=== PATIENT | male | born 1970 | race Caucasian/White ===

== ENCOUNTER 2021-08-19 11:08 | Emergency (ER) | payer MEDICAID ==
--- NOTE | 2021-08-19 12:10 | EDM.PDOC ---
ED HPI GENERAL MEDICAL PROBLEM - General Chief Complaint: Respiratory Problem Stated Complaint: COVID SYMPTOM Time Seen by Provider: 08/19/21 11:55 Source of Information: Reports: Patient, RN History Limitations: Reports: No Limitations - History of Present Illness INITIAL COMMENTS - FREE TEXT/NARRATIVE: 51 yo non-vaccinated male nonsmoker presents 5 days into a case of Covid-19 for cough and some chest tightness. He called the clinic and was told to go to the ER. He had a transient low grade fever that has resolved. Has mild SMITH. Cough is nonproductive. His is further into her course of Covid. Onset: Gradual Onset Date: 08/15/21 Duration: Day(s):, Getting Worse Location: Reports: Chest Quality: Reports: Other (mild tightness) Severity: Mild Improves with: Reports: Rest Worsens with: Reports: Movement (exertion) Context: Reports: Other (See HPI) Associated Symptoms: Reports: Cough, Fever/Chills (now gone), Shortness of Breath. Denies: Nausea/Vomiting, Rash Treatments [employer]: Reports: Other (see below) (none) Chest Pain Score (Numeric/FACES): 6 - Related Data Allergies Allergy/AdvReac Type Severity Reaction Status Date / Time No Known Allergies Allergy Verified 08/19/21 11:43 Home Meds: Home Meds NK [No Known Home Meds] 08/19/21 [History] Past Medical History - Past Health History Medical/Surgical History: Denies Medical/Surgical History - Infectious Disease History Infectious Disease History: Reports: Chicken Pox Social & Family History - Tobacco Use Tobacco Use Status *Q: Never Tobacco User - Caffeine Use Caffeine Use: Reports: Coffee, Tea - Recreational Drug Use Recreational Drug Use: No ED ROS GENERAL - Review of Systems Review Of Systems: See Below Constitutional: Reports: Malaise. Denies: Fever, Chills HEENT: Reports: Throat Pain Respiratory: Reports: Shortness of Breath, Cough. Denies: Wheezing, Pleuritic Chest Pain, Sputum, Hemoptysis Cardiovascular: Reports: No Symptoms GI/Abdominal: Reports: No Symptoms : Reports: No Symptoms Musculoskeletal: Reports: No Symptoms Skin: Reports: No Symptoms Neurological: Reports: No Symptoms ED EXAM, GENERAL - Physical Exam Exam: See Below Exam Limited By: No Limitations General Appearance: Alert, WD/WN, No Apparent Distress Eye Exam: Bilateral Eye: Normal Inspection Ears: Normal External Exam, Normal Canal, Hearing Grossly Normal, Normal TMs Ear Exam: Bilateral Ear: Auricle Normal, Canal Normal, TM normal Nose: Normal Inspection, No Blood Throat/Mouth: Normal Lips, Normal Voice, No Airway Compromise, Other (small vesicles on R soft palate) Head: Atraumatic, Normocephalic Neck: Normal Inspection Respiratory/Chest: No Respiratory Distress, No Accessory Muscle Use, Crackles (diffusely). No: Lungs Clear, Normal Breath Sounds Cardiovascular: Regular Rate, Rhythm, No Edema Extremities: Normal Inspection Neurological: Alert, Oriented, CN II-XII Intact, Normal Cognition, No Motor/Sensory Deficits Psychiatric: Normal Affect, Normal Mood Skin Exam: Warm, Dry, Intact, Normal Color, No Rash Course - Vital Signs Last Recorded V/S: Last Vital Signs Temp 36.4 C 08/19/21 11:41 Pulse 93 08/19/21 11:41 Resp 16 08/19/21 11:41 BP 137/78 08/19/21 11:41 Pulse Ox 97 08/19/21 11:41 - Orders/Labs/Meds Labs: Laboratory Tests 08/19/21 Range/Units 12:04 WBC 4.0 L (4.5-11.0) K/uL RBC 4.70 (4.30-5.90) M/uL Hgb 14.8 (12.0-15.0) g/dL Hct 42.1 (40.0-54.0) % MCV 90 (80-98) fL MCH 32 H (27-31) pg MCHC 35 (32-36) % Plt Count 145 L (150-400) K/uL Neut % (Auto) 78.1 H (36-66) % Lymph % (Auto) 12.3 L (24-44) % [place] % (Auto) 9.0 H (2-6) % Eos % (Auto) 0.3 L (2-4) % Baso % (Auto) 0.3 (0-1) % Departure - Departure Time of Disposition: 12:43 Disposition: Home, Self-Care 01 Condition: Fair Clinical Impression: COVID-19 - Discharge Information *PRESCRIPTION DRUG MONITORING PROGRAM REVIEWED*: Not Applicable *COPY OF PRESCRIPTION DRUG MONITORING REPORT IN PATIENT LENA: Not Applicable Instructions: Symptoms of COVID-19 - CDC (01/18/2021), COVID-19 Frequently Asked Questions Referrals: Roxi Mccarthy PA [Primary Care Provider] - Forms: ED Department Discharge Additional Instructions: Supportive care. Isolate yourself for another 5-6 days to prevent spread. Recheck if worse. Sepsis Event Note (ED) - Focused Exam Vital Signs: Vital Signs Temp Pulse Resp BP Pulse Ox 08/19/21 11:41 36.4 C 93 16 137/78 97 08/19/21 11:26 36.4 C 93 16 137/78 97
== END 2021-08-19 12:52 | disposition home or self-care (01) ==
LOC: JP.ED 11:08
DX: U07.1 COVID-19 (principal)
CPT/HCPCS: 36415; 85025; 99284